=== PATIENT | male | born 1960 | race African-American/Black ===

== ENCOUNTER 2017-05-21 21:53 | Inpatient (IN) | payer MEDICAID ==
[~2017-05-21] VITALS: Ht 162.6 cm; Wt 64.4 kg
[2017-05-22] MEDS ORDERED: IBUPROFEN 600MG TABLET PO STA (09:31)
[2017-05-22 09:58] LABS: BASOPHILS % 0.8 % (0.0-2.0); HEMATOCRIT. 40.1 % (42.0-52.0); HEMOGLOBIN. 13.8 g/dL (14.0-18.0); LYMPHOCYTES % 15.5 % (20.0-50.0); MEAN CORPUSCULAR HEMOGLOBIN 29.5 pg (28.0-32.0); MEAN CORPUSCULAR VOLUME 85.7 fL (80.0-94.0); MEAN PLATELET VOLUME 7.4 fl (7.4-10.4); MONOCYTES % 7.9 % (2.0-8.0); NEUTROPHILS % 74.8 % (40.0-76.0); PLATELET 336 x1000/uL (130-400); RED BLOOD CELL COUNT 4.68 mill/uL (4.7-6.1); RED CELL DISTRIBUTION WIDTH 13.1 % (11.6-14.6)
[2017-05-22 10:11] LABS: CARBON DIOXIDE 26 mEq/L (21-32); CHLORIDE 104 mEq/L (98-107)
[2017-05-22] MEDS: VANCOMYCIN 1 G PREMIX 200 ML IV SCH ×5 (13:12→15:20)
[2017-05-22] MEDS ORDERED: ACETAMINOPHEN 325MG TABLET PO PRN (15:30)
[2017-05-22] MEDS ORDERED: PIPERACILLIN/TAZ 3.375G PREMIX 50 ML IV SCH (15:30)
[2017-05-22] MEDS ORDERED: ONDANSETRON HCL 4MG/2ML VIAL IV PRN (15:30)
[2017-05-22] MEDS ORDERED: HYDROCODONE/ACETAMINOPHEN 5/325MG TABLET PO PRN (15:30)
[2017-05-22] MEDS ORDERED: IPRATROPIUM/ALBUTEROL 0.5-3(2.5)MG/3ML NEB INH PRN (15:30)
[2017-05-22] MEDS ORDERED: CLONIDINE 0.1MG TABLET PO PRN (15:30)
[2017-05-22] MEDS ORDERED: MAGNESIUM/ALUMINUM HYDROXIDE/SIMETHICONE 30ML UDC PO PRN (15:30)
[2017-05-22 17:44] LABS: CHLORIDE 104 mEq/L (98-107)
[2017-05-22 17:46] LABS: CARBON DIOXIDE 25 mEq/L (21-32)
[2017-05-22 22:00] VITALS: BP 145/85
[2017-05-23] VITALS: BP 145/85
[2017-05-23] MEDS: ENOXAPARIN 40MG/0.4ML SYR SUBCUT SCH ×2 (00:05→21:09)
[2017-05-23] MEDS: LEVOFLOXACIN 500MG PREMIX 100 ML IV SCH ×2 (00:05→23:03)
[2017-05-23] MEDS: VANCOMYCIN 1 G PREMIX 200 ML IV SCH ×3 (00:05→21:10)
[2017-05-23 04:00] VITALS: BP 148/81
[2017-05-23 07:42] LABS: BASOPHILS % 0.6 % (0.0-2.0); HEMATOCRIT. 36.6 % (42.0-52.0); HEMOGLOBIN. 12.5 g/dL (14.0-18.0); LYMPHOCYTES % 22.4 % (20.0-50.0); MEAN CORPUSCULAR HEMOGLOBIN 29.4 pg (28.0-32.0); MEAN PLATELET VOLUME 7.5 fl (7.4-10.4); MONOCYTES % 7.7 % (2.0-8.0); NEUTROPHILS % 68.3 % (40.0-76.0); PLATELET 294 x1000/uL (130-400); RED BLOOD CELL COUNT 4.26 mill/uL (4.7-6.1); RED CELL DISTRIBUTION WIDTH 12.9 % (11.6-14.6)
[2017-05-23 08:00] VITALS: BP 138/77
[2017-05-23 12:00] VITALS: BP 136/75
[2017-05-23 16:00] VITALS: BP 146/94
[2017-05-23 20:00] VITALS: BP 144/85
[2017-05-24] MEDS ORDERED: VANCOMYCIN 1250MG in DEXTROSE 5% WATER 250ML IV SCH ×2
[2017-05-24] MEDS: VANCOMYCIN 1 G PREMIX 200 ML IV SCH ×3 (03:26→20:55)
[2017-05-24 06:47] LABS: BASOPHILS % 0.6 % (0.0-2.0); EOSINOPHILS % 0.8 % (0.0-5.0); HEMATOCRIT. 38.6 % (42.0-52.0); MEAN CORPUSCULAR VOLUME 86.3 fL (80.0-94.0); MEAN PLATELET VOLUME 7.9 fl (7.4-10.4); MONOCYTES % 9.6 % (2.0-8.0); PLATELET 294 x1000/uL (130-400); RED BLOOD CELL COUNT 4.47 mill/uL (4.7-6.1); RED CELL DISTRIBUTION WIDTH 12.9 % (11.6-14.6)
[2017-05-24 08:00] VITALS: BP_SYST 119; BP_SYST 99; BP_DIAS 48; BP_DIAS 78
[2017-05-24 08:00] LABS: CARBON DIOXIDE 22 mEq/L (21-32); CHLORIDE 102 mEq/L (98-107)
[2017-05-24 12:08] VITALS: BP 124/62
[2017-05-24 16:00] VITALS: BP 130/89
[2017-05-24 20:00] VITALS: BP 137/81
[2017-05-24] MEDS: ENOXAPARIN 40MG/0.4ML SYR SUBCUT SCH (20:55)
[2017-05-25] VITALS: BP 133/84
[2017-05-25] MEDS: LEVOFLOXACIN 500MG PREMIX 100 ML IV SCH (02:18)
[2017-05-25 04:00] VITALS: BP 130/89
[2017-05-25] MEDS: VANCOMYCIN 1 G PREMIX 200 ML IV SCH ×3 (04:54→20:56)
[2017-05-25 06:27] LABS: HEMATOCRIT. 39.7 % (42.0-52.0); HEMOGLOBIN. 13.4 g/dL (14.0-18.0); LYMPHOCYTES % 19.6 % (20.0-50.0); MEAN CORPUSCULAR HEMOGLOBIN 29.1 pg (28.0-32.0); MONOCYTES % 9.5 % (2.0-8.0); NEUTROPHILS % 68.9 % (40.0-76.0); RED BLOOD CELL COUNT 4.61 mill/uL (4.7-6.1); RED CELL DISTRIBUTION WIDTH 12.9 % (11.6-14.6)
[2017-05-25 07:49] LABS: CARBON DIOXIDE 26 mEq/L (21-32); CHLORIDE 103 mEq/L (98-107)
[2017-05-25 08:00] VITALS: BP 133/74
[2017-05-25 12:00] VITALS: BP 134/86
[2017-05-25] MEDS ORDERED: BISACODYL 10MG SUPP PR PRN (14:00)
[2017-05-25] MEDS ORDERED: SORBITOL 70% SOLN 30ML PO PRN (14:00)
[2017-05-25 16:00] VITALS: BP 133/86
[2017-05-25 20:00] VITALS: BP 151/93
[2017-05-25] MEDS: ENOXAPARIN 40MG/0.4ML SYR SUBCUT SCH (20:58)
[2017-05-26] VITALS: BP 140/86
[2017-05-26] MEDS: LEVOFLOXACIN 500MG PREMIX 100 ML IV SCH ×2 (03:10→22:50)
[2017-05-26 04:00] VITALS: BP 122/88
[2017-05-26] MEDS: VANCOMYCIN 1 G PREMIX 200 ML IV SCH ×3 (05:36→20:21)
[2017-05-26 08:00] VITALS: BP 124/84
[2017-05-26 08:12] LABS: BASOPHILS % 0.5 % (0.0-2.0); EOSINOPHILS % 1.3 % (0.0-5.0); HEMATOCRIT. 40.2 % (42.0-52.0); HEMOGLOBIN. 13.7 g/dL (14.0-18.0); MEAN CORPUSCULAR HEMOGLOBIN 29.4 pg (28.0-32.0); MEAN PLATELET VOLUME 7.2 fl (7.4-10.4); MONOCYTES % 10.3 % (2.0-8.0); NEUTROPHILS % 65.9 % (40.0-76.0); PLATELET 325 x1000/uL (130-400); RED BLOOD CELL COUNT 4.67 mill/uL (4.7-6.1); RED CELL DISTRIBUTION WIDTH 13.1 % (11.6-14.6)
[2017-05-26 09:10] LABS: CARBON DIOXIDE 24 mEq/L (21-32); CHLORIDE 103 mEq/L (98-107)
[2017-05-26] MEDS ORDERED: LIDOCAINE HCL 1% 20ML VIAL (Pyxis) INJ ONE (09:22)
[2017-05-26 12:00] VITALS: BP 120/73
[2017-05-26 20:00] VITALS: BP 117/86
[2017-05-26] MEDS: ENOXAPARIN 40MG/0.4ML SYR SUBCUT SCH (20:21)
[2017-05-26] MEDS: BACITRACIN ZINC 15GM TUBE TOP SCH (22:49)
[2017-05-26 23:53] VITALS: BP 113/87
[2017-05-27 03:52] LABS: CARBON DIOXIDE 25 mEq/L (21-32); CHLORIDE 103 mEq/L (98-107); VANCOMYCIN TROUGH 23.3 ug/mL (5.0-10.0)
[2017-05-27 04:00] VITALS: BP 116/84
[2017-05-27 04:10] LABS: BASOPHILS % 0.6 % (0.0-2.0); HEMATOCRIT. 40.2 % (42.0-52.0); HEMOGLOBIN. 13.6 g/dL (14.0-18.0); LYMPHOCYTES % 21.2 % (20.0-50.0); MEAN CORPUSCULAR HEMOGLOBIN 29.6 pg (28.0-32.0); MEAN CORPUSCULAR VOLUME 87.4 fL (80.0-94.0); MEAN PLATELET VOLUME 7.2 fl (7.4-10.4); MONOCYTES % 10.1 % (2.0-8.0); NEUTROPHILS % 67.1 % (40.0-76.0); PLATELET 293 x1000/uL (130-400); RED CELL DISTRIBUTION WIDTH 12.7 % (11.6-14.6)
[2017-05-27] MEDS: VANCOMYCIN 1 G PREMIX 200 ML IV SCH (05:24)
[2017-05-27 08:00] VITALS: BP 133/87
[2017-05-27] MEDS: BACITRACIN ZINC 15GM TUBE TOP SCH (10:31)
[2017-05-27 12:00] VITALS: BP 126/85
[2017-05-27 16:00] VITALS: BP 122/80
[2017-05-27] MEDS: LEVOFLOXACIN 500MG TABLET PO SCH (17:48)
[2017-05-27 20:00] VITALS: BP 118/86
[2017-05-27] MEDS: VANCOMYCIN 1500MG in DEXTROSE 5% WATER 250ML IV SCH (22:20)
[2017-05-27] MEDS: ENOXAPARIN 40MG/0.4ML SYR SUBCUT SCH (22:36)
[2017-05-28] VITALS: BP 135/89
[2017-05-28 04:00] VITALS: BP 114/85
[2017-05-28] MEDS: VANCOMYCIN 1500MG in DEXTROSE 5% WATER 250ML IV SCH (06:36)
[2017-05-28 08:00] VITALS: BP 143/81
[2017-05-28] MEDS: BACITRACIN ZINC 15GM TUBE TOP SCH (08:53)
[2017-05-28] MEDS: LEVOFLOXACIN 500MG TABLET PO SCH (11:19)
[2017-05-28 12:00] VITALS: BP 118/82
[2017-05-28 15:57] VITALS: BP 118/82
[2017-05-28 16:00] VITALS: BP 120/87
== END 2017-05-28 18:30 | disposition home health service (06) | DRG 344 ==
LOC: ER 21:53 → 6EST 05-22 12:49 → EDBEDREQTM 05-22 12:52 → EDBEDREQ 05-22 12:52 → ENRESERV 05-22 21:15
PROVIDERS: ADMIT Internal Medicine; ATTEND Internal Medicine
PROC: 02HV33Z Insertion of Infusion Device into Superior Vena Cava, Percutaneous Approach (ICD-10-PCS; principal; 2017-05-26)
PROC: B548ZZA Ultrasonography of Superior Vena Cava, Guidance (ICD-10-PCS; 2017-05-26)
DX: M86.8X7 Other osteomyelitis, ankle and foot (principal); I69.351 Hemiplegia and hemiparesis following cerebral infarction affecting right dominant side; I10 Essential (primary) hypertension; L03.031 Cellulitis of right toe; L02.611 Cutaneous abscess of right foot; K59.00 Constipation, unspecified; L60.3 Nail dystrophy; L97.509 Non-pressure chronic ulcer of other part of unspecified foot with unspecified severity; Z99.3 Dependence on wheelchair; Z88.0 Allergy status to penicillin; Z72.89 Other problems related to lifestyle
CPT/HCPCS: 36415; 36569; 71045; 73630; 73721; 76937; 80048; 80053; 80061; 80202; 83605; 84443; 85025; 87040; 87070; 87077; 87186; 87205; 93970; 96365; 96366; 99285; C1725; C1893; J1650; J1956; J3370; J3490; J7030; J7040; J7050; J7060; J7620